=== PATIENT | female | born 1950 | race Caucasian/White ===

== ENCOUNTER 2017-07-23 05:45 | Day surgery (SDC) | payer OTHER ==
[2017-07-22 11:42] LABS: BASOPHILS % (AUTO) 0.7 % (0.0-2.0); EOSINOPHILS # (AUTO) 0.4 K/uL (0.0-0.4); EOSINOPHILS % (AUTO) 6.4 % (0.0-4.0); HEMATOCRIT 40.8 % (36-48); HEMOGLOBIN 13.5 g/dL (12.0-16.0); LYMPHOCYTES # (AUTO) 1.9 K/uL (1.0-5.5); MEAN CORPUSCULAR HEMOGLOBIN 30 pg (27-31); MEAN CORPUSCULAR HGB CONC 33 % (32-36); MEAN CORPUSCULAR VOLUME 89 fL (79.0-98.0); MONOCYTES # (AUTO) 0.3 K/uL (0.0-1.0); MONOCYTES % (AUTO) 5.3 % (1.7-9.3); NEUTROPHILS # (AUTO) 3.1 K/uL (1.8-7.7); NEUTROPHILS % (AUTO) 53.6 % (40.0-70.0); PLATELET COUNT (AUTO) 295 K/uL (130-430); RED BLOOD CELL COUNT(AUTO) 4.58 MIL/uL (4.2-6.2); RED CELL DISTRIBUTION WIDTH 12.3 % (9.0-15.0); WHITE BLOOD COUNT (AUTO) 5.7 K/uL (4.8-10.8)
[2017-07-22 11:46] LABS: BILIRUBIN,URINE NEGATIVE (NEGATIVE); BLOOD, URINE NEGATIVE (NEGATIVE); CLARITY/URINE SL HAZY (CLEAR); COLOR,URINE YELLOW (YELLOW); GLUCOSE,URINE NEGATIVE (NEGATIVE); KETONES,URINE NEGATIVE (NEGATIVE); LEUKOCYTE ESTERASE ,URINE NEGATIVE (NEGATIVE); NITRITE, URINE NEGATIVE (NEGATIVE); PH,URINE 6.5 (5.0-8.0); PROTEIN URINE NEGATIVE (NEGATIVE)
[2017-07-22 12:08] LABS: ALBUMIN 4.1 g/dL (3.4-4.8); CALCIUM 8.6 mg/dL (8.4-11.0); CREATININE 0.82 mg/dL (0.55-1.30); POTASSIUM 3.4 mmol/L (3.5-5.1); TOTAL BILIRUBIN 1.1 mg/dL (0.0-1.0)
[~2017-07-23] VITALS: Ht 160 cm; Wt 77.1 kg
[2017-07-23] MEDS ORDERED: NEOSTIGMINE METHYLSULFATE 1 MG/ML, 10 ML VIAL IVP ONE (07:16)
[2017-07-23] MEDS ORDERED: fentaNYL CITRATE/PF 100 MCG/2 ML AMP IVP ONE (07:16)
[2017-07-23] MEDS ORDERED: NS 1000 ML BAG IV ONE (07:16)
[2017-07-23] MEDS ORDERED: KETOROLAC TROMETHAMINE 30 MG VIAL IVP ONE (07:16)
[2017-07-23] MEDS ORDERED: ROCURONIUM BROMIDE 10 MG/ML (ZEMURON) IV ONE (07:16)
[2017-07-23] MEDS ORDERED: PROPOFOL 200MG/ 20ML VIAL (DIPRIVAN) IV ONE (07:16)
[2017-07-23] MEDS ORDERED: METOCLOPRAMIDE HCL 10 MG/2 ML VIAL IVP ONE (07:16)
[2017-07-23] MEDS ORDERED: DEXAMETHASONE SOD PHOSPHATE 4 MG/ML VIAL IVP ONE (07:16)
[2017-07-23] MEDS ORDERED: LR 1,000 ML IV.SOLN IV ONE (07:16)
[2017-07-23] MEDS ORDERED: MIDAZOLAM HCL 5 MG/5 ML VIAL IVP ONE (07:16)
[2017-07-23] MEDS ORDERED: NS IRRIG SOLN 1000 ML IR ONE (07:16)
[2017-07-23] MEDS ORDERED: SEVOFLURANE 15 MIN GAS INH ONE (07:16)
[2017-07-23] MEDS ORDERED: BUPIVACAINE /EPINEPHRINE/PF 0.5% 30 ML VIAL INJ ONE (07:16)
[2017-07-23] MEDS ORDERED: GLYCOPYRROLATE 0.2 MG/ML VIAL IJ ONE (07:16)
[2017-07-23] MEDS ORDERED: LR 1,000 ML IV ONE (08:07)
[2017-07-23] MEDS ORDERED: DIPHENHYDRAMINE INJ 50 MG/ML VIAL IVP PRN (08:15)
[2017-07-23] MEDS ORDERED: NALBUPHINE HCL 10 MG/ML AMP IVP PRN (08:15)
[2017-07-23] MEDS ORDERED: ONDANSETRON HCL 4 MG/2 ML VIAL IVP PRN ×3 (08:15→08:45)
[2017-07-23] MEDS ORDERED: ePHEDrine sulfate 50 MG/ML VIAL IVP PRN (08:15)
[2017-07-23] MEDS ORDERED: NALOXONE HCL 0.4 MG/ML AMP (NARCAN) IVP PRN (08:15)
[2017-07-23] MEDS ORDERED: OXYCODONE/ACETAMINOPHEN 5-325 TABLET PO PRN (08:45)
[2017-07-23] MEDS ORDERED: PROMETHAZINE HCL 25 MG/ML AMP IM PRN (08:45)
[2017-07-23] MEDS ORDERED: HYDROmorphone 2 MG TAB PO PRN (08:45)
[2017-07-23] MEDS: fentaNYL CITRATE/PF 100 MCG/2 ML AMP IVP PRN ×3 (08:50→09:20)
[2017-07-23] MEDS ORDERED: fentaNYL CITRATE/PF 100 MCG/2 ML AMP ONE ×2 (08:52→09:19)
[2017-07-23] MEDS ORDERED: OXYCODONE/ACETAMINOPHEN 5-325 TABLET ONE (10:08)
[2017-07-23 11:46] VITALS: BP_SYST 122
== END 2017-07-23 11:35 | disposition home or self-care (01) ==
LOC: SMU 05:45 → SDS 05:45
PROVIDERS: ATTEND Obstetrics & Gynecology
DX: N83.202 Unspecified ovarian cyst, left side (principal); N83.201 Unspecified ovarian cyst, right side; K66.0 Peritoneal adhesions (postprocedural) (postinfection); I10 Essential (primary) hypertension; E03.9 Hypothyroidism, unspecified; Z79.899 Other long term (current) drug therapy; Z90.710 Acquired absence of both cervix and uterus; Z88.0 Allergy status to penicillin
CPT/HCPCS: 36415; 58661; 80053; 81003; 85025; 86886; 86900; 86901; 88305; C1727; J1100; J1885; J2250; J2704; J2710; J2765; J3010; J3490 ×2; J7030; J7120

== ENCOUNTER 2022-04-26 19:52 | Emergency (ER) | payer OTHER ==
[~2022-04-26] VITALS: Ht 160 cm; Wt 79.4 kg
[2022-04-26 20:01] VITALS: BP_SYST 164
--- NOTE | 2022-04-26 20:05 | NUR ---
Placed in room 2 . Placed on guide foreign tour, blood pressure machine and pulse oximeter. To gown for exam. Side rails up. Report given to Rishi QUINTERO/Berenice RN by Julio César QUINTERO(reg).
--- NOTE | 2022-04-26 20:07 | NUR ---
ER at bedside examining patient.
[2022-04-26] MEDS ORDERED: KETAMINE HCL 500 MG/10 ML VIAL IVP ONE (20:30)
--- NOTE | 2022-04-26 20:30 | NUR ---
Radiology at bedside.
--- NOTE | 2022-04-26 20:43 | NUR ---
Time out: MD, RT, EMT, ACLS RN at bedside. Verified patient name, , procedure (reduction of right shoulder). Consent signed and on chart.
--- NOTE | 2022-04-26 20:54 | NUR ---
Please see moderate sedation record.
[2022-04-26] MEDS ORDERED: MIDAZOLAM HCL 5 MG/5 ML VIAL ONE (21:00)
[2022-04-26] MEDS ORDERED: IBUP-1969 PO (21:27)
[2022-04-26] MEDS ORDERED: HYDR-3917 PO (22:02)
--- NOTE | 2022-04-26 22:15 | NUR ---
Patient returns to presedation baseline status, A/Ox3, VSS, resp even and unlabored. Patient has right shoulder in place and secured with sling. Cap refill <3 seconds on bilat nail beds. No neuro sensory loss noted. NAD noted at this time.
[2022-04-26 23:45] VITALS: BP_SYST 150
--- NOTE | 2022-04-26 23:45 | NUR ---
Patient given written and verbal discharge instructions and verbalizes understanding. ER MD discussed with patient the results and treatment provided. Patient in stable condition. ID arm band removed. IV catheter removed intact and dressing applied, no active bleeding. Patient educated on pain management and to follow up with PMD. Pain Scale 2/10. Opportunity for questions provided and answered. Medication side effect fact sheet provided. Patient A/Ox4, VSS, resp even and unlabored. Patient's daughter at bedside and taking patient home upon discharge. Patient discharged in stable condition and in wheelchair assisted by EMT tech. Nad noted at this time.
== END 2022-04-26 23:45 | disposition home or self-care (01) ==
LOC: SED 19:52
DX: S43.014A Anterior dislocation of right humerus, initial encounter (principal); S16.1XXA Strain of muscle, fascia and tendon at neck level, initial encounter; Z88.0 Allergy status to penicillin; Z79.899 Other long term (current) drug therapy; W18.30XA Fall on same level, unspecified, initial encounter; Y93.89 Activity, other specified; Y92.89 Other specified places as the place of occurrence of the external cause; Y99.8 Other external cause status
CPT/HCPCS: 99285; 23650; 72125; 73020; 76376; 99152; J2250; 96374